=== PATIENT | female | born 1985 | race Caucasian/White ===

== ENCOUNTER 2016-10-16 10:32 | Emergency (ER) | payer SELFPAY ==
--- NOTE | 2016-10-16 11:47 | ER PHYSICIAN DOCUMENTATION ---
Physician Documentation [place] [facility] Name:Cara Oquendo Age:31 yrs Sex:Female :1985 Arrival Date:10/16/2016 Time:10:32 Bed2 Private MD: Melquiades Ureña Disposition: 10/16/16 11:31 Discharged to Home/Self Care. Impression: Dentalgia. - Condition is Fair. - Discharge Instructions: DENTAL PAIN. - Prescriptions for PEN VK - take 500 milligram by ORAL route 4 times per day for 10 days; 40 milligram. Hydrocodone- Acetaminophen 5-325 mg Oral - take 1 tablet by ORAL route every 6 hours As needed; 10 tablet. - Medical Reconciliation form form. - Follow up: [facility]; When: Tomorrow; Reason: Recheck today's complaints, Continuance of care. - Problem is new. - Symptoms are unchanged. - Notes: Take Pen VK 500mg by mouth every 6 hours for 10 days... Take Ibuprofen 600mg by mouth every 6 hours with food for 3 - 4 days. For severe pain, take Vicodin 1 tab by mouth every 6 hours with food... Follow up [facility] Dentist in 1 - 2 days for evaluation. [id number] HPI: 10/16 10:35 This 31 yrs old Female presents to ER via Private Vehicle with complaints of cd Toothache. 10:35 The patient presents with pain, that is acute. The problem is located in the lower cd right first molar and right buccal mucosa. Onset: The symptom(s)/episode began/occurred acutely, 2 day(s) ago. Duration: The symptoms are continuous. Associated signs and symptoms: Pertinent positives: pain, redness in area, Pertinent negatives: fever, swelling. Historical: - Allergies: No known drug Allergies; - Home Meds: 1. Aleve Oral - PMHx: None; - PSHx: TUBAL LIGATION; - Tetanus: unknown. - Ebola Screening: : No symptoms or risks identified at this time. . - Immunization history: Flu Vaccine < 1 year. - Social history: Smoking status: Patient uses tobacco products, current every day smoker. Patient uses alcohol but reports only rare drinking. marijuana Patient/guardian denies using. ROS: 10:47 Constitutional: Negative for chills, fever, poor PO intake. cd 10:47 ENT: Positive for dental pain, Negative for ear pain, difficulty swallowing, difficulty handling secretions. 10:47 All other systems are negative. Exam: 10:47 Constitutional: The patient appears alert, awake, anxious, in obvious distress, cd moderately distressed. 10:47 ENT: TM's: are normal, Mouth: is normal, Dental exam: dental caries, that is moderate, specifically in the lower right first molar (#30), gum swelling, that is mild. 10:47 Neck: Exam negative for acute changes. Vital Signs: 10:48 BP 124 / 94; Pulse 96; Resp 18; Temp 98.0; Pulse Ox 95% on R/A; Weight 52.16 kg; Height ma 5 ft. 5 in. (165.10 cm); Pain 10; 10:48 Body Mass Index 19.14 (52.16 kg, 165.10 cm) ky MDM: 11:00 Data reviewed: vital signs, nurses notes, old medical records, and as a result, I will cd discharge patient, prescribe pain medication, Toradol. Data interpreted: Pulse oximetry: on room air is 95 %. Interpretation: normal. Counseling: I had a detailed discussion with the patient and/or guardian regarding: the historical points, exam findings, and any diagnostic results supporting the discharge/admit diagnosis, the need for outpatient follow up, for a recheck, for a referral to a specialist, a dentist. Response to treatment: the patient's symptoms have mildly improved after treatment, and as a result, I will discharge patient. 11:17 Patient medically screened. cd Dispensed Medications: 11:45 Drug: Toradol 60 mg; Route: IM; Site: right gluteus; ma 11:45 Follow up: Response: Medication administered at discharge. ma Signatures: Alondra Estevez, RN RN Melquiades Rizzo MD MD cd
--- NOTE | 2016-10-16 11:47 | ER NURSING DOCUMENTATION ---
Nurse's Notes [facility] Name:Cara Oquendo Age:31 yrs Sex:Female :1985 Arrival Date:10/16/2016 Time:10:32 Bed2 Private MD: Diagnosis:Dentalgia Presentation: 10/16 10:44 Presenting complaint:. Transition of care: Home. ma 10:44 Method Of Arrival: Private Vehicle ma 10:44 Acuity: NELLIE 4 ma Triage Assessment: 10:47 General: Appears uncomfortable, Behavior is cooperative. Pain: Complains of pain in ma right buccal mucosa. EENT: Reports pain since 2 days. Historical: - Allergies: No known drug Allergies; - Home Meds: 1. Aleve Oral - PMHx: None; - PSHx: TUBAL LIGATION; - Tetanus: unknown. - Ebola Screening: : No symptoms or risks identified at this time. . - Immunization history: Flu Vaccine < 1 year. - Social history: Smoking status: Patient uses tobacco products, current every day smoker. Patient uses alcohol but reports only rare drinking. marijuana Patient/guardian denies using. Screenin:49 Infectious Disease Risk None. Abuse screen: Denies threats or abuse. Nutritional ma screening: No deficits noted. Assessment: 11:46 Reassessment: Patient appears in no apparent distress at this time. ma Vital Signs: 10:48 BP 124 / 94; Pulse 96; Resp 18; Temp 98.0; Pulse Ox 95% on R/A; Weight 52.16 kg; Height ma 5 ft. 5 in. (165.10 cm); Pain 10/10; 10:48 Body Mass Index 19.14 (52.16 kg, 165.10 cm) ma ED Course: 10:32 Patient arrived in ED. ds 10:44 Alondra Estevez, RN is Primary Nurse. ma 10:44 Triage completed. ma 10:49 Valuables Remains with patient Patient has correct armband on for positive ma identification. Bed in low position. Call light in reach. Adult w/ patient. 11:17 Melquiades Camilo MD is Attending Physician. cd 11:30 [facility] is Referral Physician. cd Administered Medications: 11:45 Drug: Toradol 60 mg; Route: IM; Site: right gluteus; ma 11:45 Follow up: Response: Medication administered at discharge. ma Outcome: 11:31 Discharge ordered by . homer 11:46 Discharged to home ar 11:46 Condition: stable 11:46 Discharge instructions given to patient, Instructed on discharge instructions, follow up and referral plans. medication usage, Demonstrated understanding of instructions, Prescriptions given X 1. 11:46 Patient left the ED. ar 10/18 10:13 Discharge F/U Call: Unable to reach: no answer lb Signatures: Alondra Estevez, BONIFACIO RN fredi Srot, Rachel, Reg Reg Melquiades Harris MD MD cd Bollock, Lynda lb
[2016-10-16] MEDS ORDERED: KETOROLAC TROMETHAMINE 60 MG/2 ML VIAL ONE (11:51)
== END 2016-10-16 11:47 | disposition home or self-care (01) ==
LOC: ER 10:32
DX: K08.89 Other specified disorders of teeth and supporting structures (principal); K02.9 Dental caries, unspecified; F17.210 Nicotine dependence, cigarettes, uncomplicated
CPT/HCPCS: 96372; 99283; J1885

== ENCOUNTER 2017-01-05 08:36 | Emergency (ER) | payer SELFPAY ==
--- NOTE | 2017-01-05 09:24 | ER NURSING DOCUMENTATION ---
Nurse's Notes [facility] Name:Cara Oquendo Age:32 yrs Sex:Female :1985 Arrival Date:01/05/2017 Time:08:36 Bed2 Private MD: Diagnosis:Dental Abscess Presentation: 01/05 08:44 Presenting complaint: Patient states: pt has right lower jaw pain and dental pain. pt st has know she had to get that tooth taken care of for some time but the swelling is new as of this AM. Transition of care: Home. Notified ED Physician of Dr. Singh notified. 08:44 Acuity: NELLIE 4 st 08:44 Method Of Arrival: Private Vehicle st Triage Assessment: 08:47 General: Appears uncomfortable, Behavior is cooperative. Pain: Complains of pain in st lower right second molar and right jaw Pain currently is 8 out of 10 on a pain scale. EENT: Oral mucosa is moist. Poor dentition noted. Reports pain in right jaw. Musculoskeletal: Swelling present in right jaw. Historical: - Allergies: No known drug Allergies; - Home Meds: 1. None - PMHx: NONE; - PSHx: TUBAL LIGATION; - Tetanus: < 10 years. - Ebola Screening: : Patient denies exposure to infectious person. Patient denies travel to an Ebola-affected area in the 21 days before illness onset. . - Social history: Smoking status: Patient uses tobacco products, current every day smoker. Patient uses alcohol occasionally. marijuana. Screenin:48 Infectious Disease Risk None. Abuse screen: Denies threats or abuse. Denies injuries st from another. pt states she feels safe at home. Nutritional screening: No deficits noted. Vital Signs: 08:48 BP 117 / 74; Pulse 94; Resp 16; Temp 98.1; Pulse Ox 95% ; Pain 8/10; st ED Course: 08:38 Patient arrived in ED. lm3 08:44 Sally Vera, RN is Primary Nurse. st 08:[address] 08:49 Valuables Remains with patient Patient has correct armband on for positive st identification. Bed in low position. 08:59 Connor Singh MD is Attending Physician. sc 09:15 Private, Dentist is Referral Physician. sc Administered Medications: No medications were administered Outcome: 09:16 Discharge ordered by . sc 09:23 Discharged to home ambulatory. st 09:23 Condition: stable : Discharge instructions given to patient, Instructed on discharge instructions, follow up and referral plans. medication usage, Prescriptions given X 2. : Patient left the ED. st Signatures: Sally Vera, RN Connor Gutierrez MD MD ri Alma Rosa Del Valle
--- NOTE | 2017-01-05 09:24 | ER PHYSICIAN DOCUMENTATION ---
Physician Documentation [facility] Name:Cara Oquendo Age:32 yrs Sex:Female :1985 Arrival Date:01/05/2017 Time:08:36 Bed2 Private MD: Connor Bhatt Disposition: 01/05/17 09:16 Discharged to Home/Self Care. Impression: Dental Abscess. - Condition is Good. - Prescriptions for Amoxicillin 500 mg Oral Capsule - take 1 capsule by ORAL route every 8 hours for 10 days; 30 tablet. Hydrocodone- Acetaminophen 5-325 mg Oral Tablet - take 1 tablet by ORAL route every 6 hours As needed; 20 tablet. - Medical Reconciliation form form. - Follow up: Private, Dentist; When: 4- 6 days; Reason: Continuance of care. - Problem is new. - Symptoms have improved. HPI: 01/05 09:13 This 32 yrs old Female presents to ER via Private Vehicle with complaints of sc Toothache. 09:13 The patient presents with pain, swelling. The problem is located in the lower right sc second molar. Onset: The symptom(s)/episode began/occurred this morning. Duration: The symptoms are continuous. Modifying factors: The symptoms are alleviated by nothing. Associated signs and symptoms: The patient has no apparent associated signs or symptoms. Historical: - Allergies: No known drug Allergies; - Home Meds: 1. None - PMHx: NONE; - PSHx: TUBAL LIGATION; - Tetanus: < 10 years. - Ebola Screening: : Patient denies exposure to infectious person. Patient denies travel to an Ebola-affected area in the 21 days before illness onset. . - Social history: Smoking status: Patient uses tobacco products, current every day smoker. Patient uses alcohol occasionally. marijuana. ROS: 09:14 Constitutional: Negative for fever, chills, and weight loss. sc Eyes: Negative for injury, pain, redness, and discharge. Cardiovascular: Negative for chest pain, palpitations, and edema. Respiratory: Negative for shortness of breath, cough, wheezing, and pleuritic chest pain. Abdomen/GI: Negative for abdominal pain, nausea, vomiting, diarrhea, and constipation. Back: Negative for injury and pain. Skin: Negative for injury, rash, and discoloration. 09:14 Neuro: Negative for headache, weakness, numbness, tingling, and seizure. sc 09:14 ENT: Positive for dental pain. Exam: Constitutional: This is a well developed, well nourished patient who is awake, alert, and in no acute distress. Head/Face: Normocephalic, atraumatic. Eyes: Pupils equal round and reactive to light, extra-ocular motions intact. Lids and lashes normal. Conjunctiva and sclera are non-icteric and not injected. Cornea within normal limits. Periorbital areas with no swelling, redness, or edema. Back: No spinal tenderness. No costovertebral tenderness. Full range of motion. Skin: Warm, dry with normal turgor. Normal color with no rashes, no lesions, and no evidence of cellulitis. 09:14 Neuro: Awake and alert, GCS 15, oriented to person, place, time, and situation. sc Cranial nerves II-XII grossly intact. Motor strength 5/5 in all extremities. Sensory grossly intact. Cerebellar exam normal. Normal gait. 09:14 ENT: Mouth: Oral mucosa: pink and intact, moist, Dental exam: dental caries, gum swelling, pain. Vital Signs: 08:48 BP 117 / 74; Pulse 94; Resp 16; Temp 98.1; Pulse Ox 95% ; Pain 8/10; st MDM: 09:06 Patient medically screened. sc 09:15 Differential diagnosis: dental abscess. Data reviewed: vital signs, nurses notes, and sc as a result, I will discharge patient. Counseling: I had a detailed discussion with the patient and/or guardian regarding: the historical points, exam findings, and any diagnostic results supporting the discharge/admit diagnosis, the need for outpatient follow up, to return to the emergency department if symptoms worsen or persist or if there are any questions or concerns that arise at home. Dispensed Medications: No medications were administered Signatures: Sally Vera RN RN st Chew, Scott, MD MD sc
== END 2017-01-05 09:24 | disposition home or self-care (01) ==
LOC: ER 08:36
DX: K04.7 Periapical abscess without sinus (principal); K08.89 Other specified disorders of teeth and supporting structures; K02.9 Dental caries, unspecified; F17.210 Nicotine dependence, cigarettes, uncomplicated
CPT/HCPCS: 99282